=== PATIENT | male | born 1955 | race Caucasian/White ===

== ENCOUNTER 2024-02-03 10:33 | Outpatient (CLI) | payer MEDICARE | END 2024-02-03 10:34 | disposition home or self-care (01) | LOC: CSHRAD 10:33 | PROVIDERS: ATTEND Psychiatry & Neurology Neurology | DX: S14.109S Unspecified injury at unspecified level of cervical spinal cord, sequela (principal); M47.812 Spondylosis without myelopathy or radiculopathy, cervical region | CPT/HCPCS: 72040 ==